=== PATIENT | female | born 1950 | race Caucasian/White ===

== ENCOUNTER → 2020-08-30 | Outpatient (CLI) | payer OTHER, BC | END | disposition home or self-care (01) | LOC: US 14:00 | PROC: B44HZZZ Ultrasonography of Bilateral Lower Extremity Arteries (ICD-10-PCS; principal; 2020-08-30) | PROC: B440ZZZ Ultrasonography of Abdominal Aorta (ICD-10-PCS; 2020-08-30) | DX: E11.9 Type 2 diabetes mellitus without complications (principal) ==